=== PATIENT | male | born 1970 | race Caucasian/White ===

== ENCOUNTER 2017-04-30 16:20 | Emergency (ER) | payer BC ==
--- NOTE | 2017-04-30 17:46 | EDM.PDOC ---
ED HPI GENERAL MEDICAL PROBLEM - General Chief Complaint: Upper Extremity Injury/Pain Stated Complaint: HURT RT WRIST Time Seen by Provider: 04/30/17 16:45 Source of Information: Reports: Patient History Limitations: Reports: No Limitations - History of Present Illness INITIAL COMMENTS - FREE TEXT/NARRATIVE: 46 y.o.w.m came to the ed after he injured his right forearm/wrist at work with a hammer. Pt has severe pain when flexing or extending his right wrist. Pt has pain with pro and supination of his arm as well.There is no pen wound, No other acute medical issues. BP 123/67 pulse 78 RR 18 pulse ox 98% on RA, Temp 36.6 Onset: Today Onset Date: 04/30/17 Onset Time: 13:00 Duration: Hour(s):, Intermittent Location: Reports: Upper Extremity, Right Quality: Reports: Ache, Burning, Dull, Pressure Severity: Moderate Improves with: Reports: Rest Worsens with: Reports: Movement Context: Reports: Trauma Associated Symptoms: Reports: No Other Symptoms Right Wrist Pain Score (Numeric/FACES): 5 - Related Data Allergies Allergy/AdvReac Type Severity Reaction Status Date / Time No Known Allergies Allergy Verified 04/30/17 18:32 Home Meds: Home Meds NK [No Known Home Meds] 04/30/17 [History] Past Medical History - Past Surgical History Musculoskeletal Surgical History: Reports: Other (See Below) Other Musculoskeletal Surgeries/Procedures:: Fx of Left leg, hip, wrist and hand. Fx r wrist. L foot partial amputation with reattachment Social & Family History - Family History Family Medical History: Noncontributory - Tobacco Use Smoking Status *Q: Never Smoker - Caffeine Use Caffeine Use: Reports: Coffee - Recreational Drug Use Recreational Drug Use: No Review of Systems - Review of Systems Review Of Systems: See Below Constitutional: Reports: No Symptoms Eyes: Reports: No Symptoms Ears: Reports: No Symptoms Nose: Reports: No Symptoms Mouth/Throat: Reports: No Symptoms Respiratory: Reports: No Symptoms Cardiovascular: Reports: No Symptoms GI/Abdominal: Reports: No Symptoms Genitourinary: Reports: No Symptoms Musculoskeletal: Reports: Arm Pain (wrist pain) Skin: Reports: No Symptoms Neurological: Reports: No Symptoms Psychiatric: Reports: No Symptoms ED EXAM, GENERAL - Physical Exam Exam: See Below Exam Limited By: No Limitations General Appearance: Alert, WD/WN, Mild Distress Eye Exam: Bilateral Eye: Normal Inspection Ears: Normal External Exam Ear Exam: Bilateral Ear: Auricle Normal Nose: Normal Inspection Throat/Mouth: Normal Inspection, Normal Lips Head: Atraumatic, Normocephalic Neck: Normal Inspection, Supple, Non-Tender Respiratory/Chest: No Respiratory Distress, Lungs Clear, Normal Breath Sounds Cardiovascular: Normal Peripheral Pulses, Regular Rate, Rhythm, No Edema, No JVD , No Murmur, No Rub GI/Abdominal: Normal Bowel Sounds, Soft, Non-Tender, No Organomegaly, No Distention, No Abnormal Bruit (Male) Exam: Deferred Rectal (Males) Exam: Deferred Back Exam: Normal Inspection, Full Range of Motion Extremities: Joint Swelling (right wrist), Arm Pain, Limited Range of Motion ( due to pain) Neurological: Alert, Oriented, CN II-XII Intact, Normal Cognition, Normal Gait Psychiatric: Normal Affect, Normal Mood Skin Exam: Warm, Dry, Intact, Normal Color, No Rash Lymphatic: No Adenopathy ED TRAUMA EXTREMITY PROCEDURES - Splinting Right Upper Extremity Splint Site: right upper forearm, long Pre-Procedure NV Status: Normal Post-Procedure NV Status: Normal Splint Material: Plaster Splint Design: Extensor Applied & Form Fitted By: Provider Provider Post-Splint Application NV Check: NV Status Normal, Good Position Complications: No Course - Vital Signs Text/Narrative:: 46 y.o.w.m came to the ed after he injured his right forearm/wrist at work with a hammer. Pt has severe pain when flexing or extending his right wrist. Pt has pain with pro and supination of his arm as well.There is no pen wound, No other acute medical issues. BP 123/67 pulse 78 RR 18 pulse ox 98% on RA, Temp 36.6 PE: WNWDWM with right arm and wrist pain, pos snuffbox sign Imaging: Right ulna/RAD neg for fracture, possible os naviculare hairline Fx. CT right wrist:NAD Impression: right wrist sprain with edema Tx: Pt refused pain meds, Splint/ice were applied Reexam: Improved Plan: D/C with instructions Last Recorded V/S: Last Vital Signs Temp 36.7 C 04/30/17 16:45 Pulse 69 04/30/17 16:45 Resp 18 04/30/17 16:45 BP 123/67 04/30/17 16:45 Pulse Ox 98 04/30/17 16:45 - Orders/Labs/Meds Orders: Active Orders 24 hr Category Date Time Status Forearm 2V Rt [CR] Stat Exams 04/30/17 16:38 Taken Upper Extremity wo Cont Rt [CT] Stat Exams 04/30/17 17:23 Taken Wrist 2V Rt [CR] Stat Exams 04/30/17 16:38 Taken Departure - Departure Time of Disposition: 18:13 Disposition: Home, Self-Care 01 Condition: Good Clinical Impression: Sprain of wrist, right Qualifiers: Encounter type: initial encounter Qualified Code(s): S63.501A - Unspecified sprain of right wrist, initial encounter Sprain of forearm, right Qualifiers: Encounter type: initial encounter Qualified Code(s): S63.501A - Unspecified sprain of right wrist, initial encounter - Discharge Information Instructions: Wrist Sprain, Adult Referrals: Chris Bradford MD [Primary Care Provider] - Klaus Penn DO [Physician] - Forms: ED Department Discharge, ED Return to Work/School Form Additional Instructions: Ice, rest and elevation, please apply splint for the next 2-3 days, movement of wrist as tolerated, Motrin for pain, please f/u in 3-4 days, Please come back if your symptoms get worse acutely. - My Orders Last 24 Hours: My Active Orders 04/30/17 16:38 Forearm 2V Rt [CR] Stat Wrist 2V Rt [CR] Stat 04/30/17 17:23 Upper Extremity wo Cont Rt [CT] Stat - Assessment/Plan Last 24 Hours: My Active Orders 04/30/17 16:38 Forearm 2V Rt [CR] Stat Wrist 2V Rt [CR] Stat 04/30/17 17:23 Upper Extremity wo Cont Rt [CT] Stat
--- NOTE | 2017-05-01 11:26 | CR ---
INDICATION: Hit wrist with big hammer. RIGHT FOREARM: Frontal and lateral views of the right forearm revealed no evidence of an acute fracture, dislocation, or other significant bone or joint abnormality. Report was called to Dr. Cortez at 1720 hours on 04/30/2017. [place]
--- NOTE | 2017-05-01 11:27 | CR ---
INDICATION: Hit wrist with big hammer. RIGHT WRIST: Three views of the right wrist were obtained and revealed suggestion of a wrist joint effusion. No displaced fracture, dislocation, or other definite bone or joint abnormality could be identified. The navicular bone appears to be intact. If an occult fracture site is suspected clinically, re-examination is recommended in 10-14 days. Report was called to Dr. Cortez at 1720 hours on 04/30/2017. [place]
--- NOTE | 2017-05-01 11:38 | CT ---
INDICATION: Right wrist pain, possible os navicular fracture, possible hairline fracture. CT WRISTS FOR RIGHT WRIST TRAUMA: Spiral 0.63 mm axial images were obtained of the wrists bilaterally with sagittal and coronal reconstructions. No comparisons were available. Total exam DLP = 439.73 mGy-cm. Multiple small chip fracture fragments are noted at the left carpus. These appear old with fracture fragments corticated - not united. A definite acute fracture site was not identified in either wrist, with special attention to the right navicular bone and remainder of the carpus. The radius and ulna appear to be intact. IMPRESSION: No acute fracture or dislocation. Report was called to Dr. Cortez at 1758 hours on 04/30/2017. [facility]
== END 2017-04-30 18:21 | disposition home or self-care (01) ==
LOC: FB.ED 16:20
DX: S63.501A Unspecified sprain of right wrist, initial encounter (principal); W27.8XXA Contact with other nonpowered hand tool, initial encounter; Y99.0 Civilian activity done for income or pay
CPT/HCPCS: 73090-RT; 73100-RT; 73200-RT; 99283